=== PATIENT | female | born 1980 | race Caucasian/White ===

== ENCOUNTER 2023-08-29 22:30 | Emergency (ER) | payer BC ==
[~2023-08-29] VITALS: Ht 162.6 cm; Wt 59.0 kg
[2023-08-29] MEDS ORDERED: HYDROMORPHONE 1 MG/1 ML DISP.SYRIN IM ONE (23:15)
[2023-08-29] MEDS ORDERED: HYDROMORPHONE 1 MG/1 ML DISP.SYRIN ONE (23:21)
[2023-08-29 23:28] LABS: BASOPHILS # (AUTO) 0.1 K/UL (0.0-0.2); BASOPHILS % (AUTO) 0.5 % (0.0-2.0); EOSINOPHILS # (AUTO) 0.1 K/uL (0.0-0.7); EOSINOPHILS % (AUTO) 0.7 % (0.0-7.0); HEMATOCRIT 38.8 % (31.2-41.9); HEMOGLOBIN 12.7 g/dL (10.9-14.3); LYMPHOCYTES # (AUTO) 2.3 K/uL (0.8-4.8); LYMPHOCYTES % (AUTO) 17.6 % (20.5-51.5); MEAN CORPUSCULAR HEMOGLOBIN 28.8 uug (24.7-32.8); MEAN CORPUSCULAR HGB CONC 33 g/dL (32.3-35.6); MEAN CORPUSCULAR VOLUME 87.8 fL (75.5-95.3); MONOCYTES # (AUTO) 0.8 K/uL (0.1-1.30); MONOCYTES % (AUTO) 6.3 % (0.0-11.0); NEUTROPHILS # (AUTO) 9.8 K/uL (1.8-8.9); NEUTROPHILS % (AUTO) 74.9 % (38.5-71.5); PLATELET COUNT (AUTO) 245 K/uL (179-408); RED BLOOD CELL COUNT(AUTO) 4.42 MIL/uL (3.63-4.92); RED CELL DISTRIBUTION WIDTH 13.7 % (12.3-17.7); WHITE BLOOD COUNT (AUTO) 13.1 K/uL (3.8-11.8)
[2023-08-29 23:29] LABS: *BILIRUBIN,URIN NEGATIVE (NEGATIVE); *BLOOD, URINE 2+ (NEGATIVE); *CLARITY,URINE CLEAR (CLEAR); *COLOR,URINE YELLOW (YELLOW); *KETONES,URINE NEGATIVE (NEGATIVE); *PROTEIN,URINE NEGATIVE (NEGATIVE); *UROBILINOGEN,URINE 0.2 E.U./dl (NORMAL); LEUKOCYTE ESTERASE ,URINE NEGATIVE (NEGATIVE); NITRITE, URINE NEGATIVE (NEGATIVE); PH,URINE 7.5 (5.0-8.0); UGLUCOSE NEGATIVE (NEGATIVE)
[2023-08-29 23:32] LABS: *URINE HCG, QUAL NEGATIVE (NEGATIVE); DIFFERENTIAL COMMENT 1
[2023-08-29 23:42] LABS: CALCIUM 8.7 mg/dL (8.5-10.1); CARBON DIOXIDE 27 mmol/L (21-32); CHLORIDE 101 mmol/L (98-107); CREATININE 0.7 mg/dL (0.6-1.3); GLUCOSE 113 mg/dL (74-106); POTASSIUM 4.2 mmol/L (3.5-5.1); SODIUM SERUM 136 mmol/L (136-145); UREA NITROGEN, BLOOD 6 mg/dL (7-18)
[2023-08-29 23:48] LABS: ALANINE AMINOTRANSFERASE 21 U/L (14-59); ALBUMIN 3.3 g/dL (3.4-5.0); ALKALINE PHOSPHATASE 31 U/L (50-136); ASPARTATE AMINOTRANSFERASE 18 U/L (15-37); BILIRUBIN,TOTAL 0.3 mg/dL (0.2-1.0)
[2023-08-29 23:51] LABS: BILIRUBIN,DIRECT < 0.1 mg/dL (0.0-0.2)
[2023-08-30 00:04] LABS: LIPASE 27 U/L (16-77)
[2023-08-30] MEDS ORDERED: KETOROLAC TROMETHAMINE 15 MG INJ ONE (00:13)
[2023-08-30] MEDS ORDERED: HYDROMORPHONE 1 MG/1 ML DISP.SYRIN ONE ×2 (00:14→02:26)
[2023-08-30] MEDS ORDERED: HYDROMORPHONE 1 MG/1 ML DISP.SYRIN IV ONE ×2 (00:15→02:15)
[2023-08-30] MEDS ORDERED: KETOROLAC TROMETHAMINE 15 MG INJ IVP ONE (00:15)
[2023-08-30 03:07] LABS: BACTERIA,URINE NONE SEEN /HPF (NONE SEEN); WBC,URINE 0-3 /HPF (0-3)
[2023-08-30 03:08] LABS: SQUAMOUS EPITHELIAL CELL,UR FEW /HPF (NONE SEEN)
[2023-08-30] MEDS ORDERED: OXYCODONE HCL 5 MG TABLET PO ONE (04:30)
[2023-08-30] MEDS ORDERED: OXYC5TAB3 PO (04:33)
[2023-08-30] MEDS ORDERED: OXYCODONE HCL 5 MG TABLET ONE (04:37)
[2023-08-30 04:42] VITALS: BP 117/56; O2SAT 96
== END 2023-08-30 04:43 | disposition home or self-care (01) ==
LOC: ER 22:30
DX: R10.2 Pelvic and perineal pain (principal); D25.9 Leiomyoma of uterus, unspecified; G89.18 Other acute postprocedural pain; Z79.899 Other long term (current) drug therapy
CPT/HCPCS: 99285; 74176; 80076; 80048; 81001; 84703; 83690; 85025; 36415; 96372; 83605; 96374; 96375; J1170 ×2; J1885; A4606; A4663